=== PATIENT | female | born 1965 | race Caucasian/White ===

== ENCOUNTER 2016-07-26 09:34 | Day surgery (SDC) | payer BC, OTHER ==
--- NOTE | ~2016-07-26 | OP ---
Record Of Operation [facility] [address] [place]. [address] NAME: CREWAZRA : 67 STATUS : [facility] [place] [id number] AGE: 51 ADM/REG DATE : 07/26/16 MR#: [id number] REPORT SERV DATE: 07/26/16 DICTATED BY: DELFINO SKY DATE: 07/26/16 REPORT STATUS : Draft TRANSCRIBED BY: LENI DATE: 07/26/16 DATE OF PROCEDURE: PREPROCEDURE DIAGNOSIS: Screening. POSTPROCEDURE DIAGNOSIS: Aphthous ulcers in the cecum. PROCEDURE: Colonoscopy with cold biopsies of the cecum. DESCRIPTION OF PROCEDURE: The patient was taken to the endoscopy suite and positioned in the left lateral decubitus position. Informed consent was obtained, followed by IV sedation delivered by [employer]. The sacral nerve stimulator was turned off, and digital rectal exam was performed with decreased sphincter tone. The scope was navigated without difficulty to the ileocecal valve, where appendiceal orifice was identified. Prep was adequate. More than 90% of the mucosa was visualized. No polyps were noted. She did have aphthous ulcers in the cecum, but in no other location, and no other inflammation or diverticular disease. The scope was withdrawn over a 12-minute period of time. No attempt was made to retroflex since the patient is incontinent of stool and could not hold the gas. However, the scope was withdrawn slowly through the anal canal, where there appeared to be grade 2 internal hemorrhoids with some inflammation, which would be consistent with the patient's recent bleeding. Her followup is repeat colonoscopy in 10 years. It was my pleasure participating in the care of your patient. MYNOR/LENI Delfino Sky M.D. / [id number] CC: Balaji Beaulieu DO
[~2016-07-26 09:34] MED LIST: *DENIES; ACET500CAP PO; ASA5GR PO; BENADRYL 50 MG50 MG PO; CYMBALTA30 PO; DIL2TAB PO; DIOVAN HCT160 MG/25 PO; KLONO5 PO; LIPITOR20 PO; LYRICA50 PO; MAGOX4 PO; MIRALAXPKT PO; MOTRIN IB200 MG PO; MULTIVIT/MIN PO; MULTIVITAMI1 PO; PEPCID40 MG OR; PRILOSEC OTC20 MG PO; SAVELLA25 MG PO; SEROQUEL25 PO; VITAMIN D31000 UNIT PO; WELLXL300 PO; ZANAFLEX2 MG PO
[2016-12-26] MEDS ORDERED: PROMETRIUM200 MG PO (15:02)
[2016-12-26] MEDS ORDERED: VIVELLE SY0.0375 MG/ TOP (15:02)
[2016-12-26] MEDS ORDERED: DIL2TAB PO (15:03)
[2016-12-26] MEDS ORDERED: ZOFRAN4 PO (15:04)
== END 2016-07-26 23:59 | disposition home or self-care (01) ==
LOC: DMU 09:34
PROVIDERS: Surgery
PROC: 0DBH8ZX Excision of Cecum, Via Natural or Artificial Opening Endoscopic, Diagnostic (ICD-10-PCS; principal; 2016-07-26 11:00)
DX: Z12.11 Encounter for screening for malignant neoplasm of colon (principal); K64.1 Second degree hemorrhoids; K21.9 Gastro-esophageal reflux disease without esophagitis; F41.9 Anxiety disorder, unspecified; G62.9 Polyneuropathy, unspecified; M79.7 Fibromyalgia; F32.9 Major depressive disorder, single episode, unspecified; Z87.01 Personal history of pneumonia (recurrent); Z88.2 Allergy status to sulfonamides; Z88.5 Allergy status to narcotic agent; Z91.040 Latex allergy status; Z88.6 Allergy status to analgesic agent; Z88.8 Allergy status to other drugs, medicaments and biological substances; Z91.018 Allergy to other foods; Z90.710 Acquired absence of both cervix and uterus; Z98.890 Other specified postprocedural states
CPT/HCPCS: 88305; J2405

== ENCOUNTER 2016-12-25 14:54 | Emergency (ER) | payer BC, OTHER ==
[2016-12-25 15:43] LABS: BASOPHILS 0.2 %; BASOPHILS ABSOLUTE 0.03 10/3/uL (0.0-0.16); EOSINOPHILS 0.5 %; EOSINOPHILS ABSOLUTE 0.07 10/3/uL (0.0-0.53); HEMATOCRIT 40.3 % (36.0-48.0); HEMOGLOBIN 13.2 g/dL (12.0-16.0); IMMATURE GRANULOCYTES 0.3 %; IMMATURE GRANULOCYTES ABSOLUTE 0.04 10/3/uL (0.0-0.11); LYMPHOCYTES 9.5 %; LYMPHOCYTES ABSOLUTE 1.44 10/3/uL (0.67-4.30); MEAN CORPUS HGB CONC 32.8 g/dL (32.0-36.0); MEAN CORPUSCULAR HEMOGLOB 32.1 pg (26.0-34.0); MEAN CORPUSCULAR VOLUME 98.1 fL (80-100); MEAN PLATELET VOLUME 10.3 fL (9.2-13.0); MONOCYTES 4.5 %; MONOCYTES ABSOLUTE 0.68 10/3/uL (0.21-1.20); NEUTROPHILS ABSOLUTE 12.92 10/3/uL (2.02-8.40); PLATELET COUNT 292 10/3/uL (150-400); RED CELL COUNT 4.11 10/6/uL (4.0-5.6)
[2016-12-25 15:44] LABS: ER CBC TAT 0 Hrs 08 Mins; MANUAL DIFF NO %; WHITE BLOOD CELLS 15.2 10/3/uL (4.5-10.5)
[2016-12-25 15:50] LABS: ASCORBIC ACID (UR NOT ORDER) NEG (NEG); BILIRUBIN, URINE NEGATIVE (NEG); ER URINALYSIS TAT 0 Hrs 14 Mins; KETONE, URINE NEGATIVE (NEG); LEUKOCYTE ESTERASE(NOT OR NEG (NEG); NITRITE (URINE) NEG (NEG); WBC (NOT ORDERED) (RFLEX) 2 (0-5)
[2016-12-25 16:00] LABS: A/G RATIO 0.9 (0.7-1.9); ALKALINE PHOSPHATASE 86 U/L (45-117); CHLORIDE, SERUM 109 MMOL/L (96-112); GLOBULIN 4.2 G/DL (2.5-4.1); GLUCOSE, SERUM 99 MG/DL (60-99); SGOT(AST) 13 U/L (5-40); SGPT(ALT) 15 U/L (5-65); SODIUM, SERUM 141 MMOL/L (135-148); TOTAL BILIRUBIN 0.5 MG/DL (0-1.2); TOTAL PROTEIN 8.1 G/DL (6.0-8.5)
[2016-12-25 16:01] LABS: ALBUMIN 3.9 G/DL (3.5-5.0); BUN (BLOOD UREA NITROGEN) 16 MG/DL (6-23); CO2 (CARBON DIOXIDE) 23 MMOL/L (24-34); CREATININE 1.58 MG/DL (0.55-1.02); GFR AFRICAN AMERICAN 44 ML/MIN (>=60); GFR NON AFRICAN AMERICAN 38 ML/MIN (>=60)
[2016-12-26] MEDS ORDERED: PROMETRIUM200 MG PO (15:02)
[2016-12-26] MEDS ORDERED: VIVELLE SY0.0375 MG/ TOP (15:02)
[2016-12-26] MEDS ORDERED: DIL2TAB PO (15:03)
[2016-12-26] MEDS ORDERED: ZOFRAN4 PO (15:04)
== END 2016-12-25 18:40 | disposition home or self-care (01) ==
LOC: ER 14:54
PROVIDERS: Hospitalist
DX: N13.2 Hydronephrosis with renal and ureteral calculous obstruction (principal); D72.829 Elevated white blood cell count, unspecified; R79.89 Other specified abnormal findings of blood chemistry; I10 Essential (primary) hypertension; Z90.710 Acquired absence of both cervix and uterus; Z88.2 Allergy status to sulfonamides; Z88.5 Allergy status to narcotic agent; Z88.6 Allergy status to analgesic agent; Z91.018 Allergy to other foods; Z91.040 Latex allergy status; Z79.899 Other long term (current) drug therapy
CPT/HCPCS: 74000; 74176; 80053; 81001; 83690; 84703; 85025; 96374; 96375; 96376; 99284; J1170; J2405

== ENCOUNTER 2016-12-27 06:32 | Day surgery (SDC) | payer BC, OTHER ==
[~2016-12-27] VITALS: Ht 180.3 cm; Wt 68.0 kg
--- NOTE | ~2016-12-27 | OP ---
Record Of Operation [facility] [address] [place]. [address] NAME: AZRA MENDOZA : 67 STATUS : [facility]#: [id number] AGE: 51 ADM/REG DATE : 12/27/16 MR#: [id number] REPORT SERV DATE: 12/27/16 DICTATED BY: DAVE PAREDES JR. DATE: 12/27/16 REPORT STATUS : Draft TRANSCRIBED BY: LENI DATE: 12/27/16 DATE OF PROCEDURE: 12/27/2016 PREOPERATIVE DIAGNOSIS: Left ureteral stone. POSTOPERATIVE DIAGNOSIS: Left ureteral stone. PROCEDURE PERFORMED: Cystoscopy, left retrograde pyelogram, dilation of left ureteral orifice, left ureteroscopy, laser ablation of left ureteral stone, removal of fragments, double-J stent placement. COMPLICATIONS: None. CONSULTATIONS: None. ANESTHESIA: General with an endotracheal tube. SPECIMENS: Left ureteral stone fragments. DRAINS: 6 x 26 cm double-J stent with string. ESTIMATED BLOOD LOSS: None. INDICATION: Mrs. Mendoza is a 51-year-old female, who comes today for removal and treatment of a 7 mm upper ureteral stone. PROCEDURE IN DETAIL: After the patient was identified and proper informed consent was obtained, she was taken to the operating room. General anesthesia was performed without complication using an endotracheal tube. She was then prepped and draped in normal sterile fashion in the lithotomy position. Cystoscopic examination of the urethra and bladder were performed. The bladder and ureteral orifices were normal along with the urethra. Left retrograde pyelogram was performed using a 5-Bulgarian open-ended catheter. The stone was visualized in the midportion of the upper ureter with some residual hydroureteronephrosis above the stone. A guidewire was advanced through the open-ended catheter around the stone into the renal pelvis and a 12 x 14 Bulgarian ureteral access sheath was then placed to dilate the distal ureter and allow access with the flexible ureteroscope. Flexible ureteroscope was then advanced up to the level of the stone. The stone was visualized, manipulated back into the renal pelvis and mid pole calyx. I then fragmented the stone using a 200 micron laser fiber into multiple tiny pieces. I removed several of those pieces for analysis. These pieces were all less than a millimeter in size. I then reinspected the rest of the renal pelvis and calices and did not note any other stones. I removed the ureteroscope and the sheath from the ureteroscope sheath and then deployed a 6 x 26 cm double-J stent with a nice curl in both the bladder and the kidney. The string was left in place for removal on Sunday in the office. I will see her in approximately six weeks for stone analysis and further dietary counseling for stone prevention. Record Of Operation [address] [place]. [address] NAME: CREWAZRA : 67 STATUS : [facility] PAT#: [id number] AGE: 51 ADM/REG DATE : 12/27/16 MR#: [id number] REPORT SERV DATE: 12/27/16 DICTATED BY: DAVE PAREDES JR. DATE: 12/27/16 REPORT STATUS : Draft TRANSCRIBED BY: LENI DATE: 12/27/16 DYLON/LENI Dave Paredes Jr., M.D. / [id number] CC: Balaji Barbosa Jr., DO
[~2016-12-27 06:32] MED LIST changes: +PROMETRIUM200 MG PO; +VIVELLE SY0.0375 MG/ TOP; +ZOFRAN4 PO
[2016-12-30 01:15] LABS: STONE COMPOSITION TWO DNR (())
== END 2016-12-27 13:06 | disposition home or self-care (01) ==
LOC: SDC 06:32
PROVIDERS: Urology
PROC: 0T778DZ Dilation of Left Ureter with Intraluminal Device, Via Natural or Artificial Opening Endoscopic (ICD-10-PCS; 2016-12-27)
PROC: BT1FZZZ Fluoroscopy of Left Kidney, Ureter and Bladder (ICD-10-PCS; 2016-12-27)
PROC: 0TF78ZZ Fragmentation in Left Ureter, Via Natural or Artificial Opening Endoscopic (ICD-10-PCS; principal; 2016-12-27 07:45)
DX: N20.1 Calculus of ureter (principal); K21.9 Gastro-esophageal reflux disease without esophagitis; I10 Essential (primary) hypertension; G62.9 Polyneuropathy, unspecified; M79.7 Fibromyalgia; F41.9 Anxiety disorder, unspecified; F32.9 Major depressive disorder, single episode, unspecified; F90.9 Attention-deficit hyperactivity disorder, unspecified type; K44.9 Diaphragmatic hernia without obstruction or gangrene; Z90.710 Acquired absence of both cervix and uterus; Z88.8 Allergy status to other drugs, medicaments and biological substances; Z91.040 Latex allergy status; Z91.018 Allergy to other foods; Z88.2 Allergy status to sulfonamides; Z88.5 Allergy status to narcotic agent; Z98.890 Other specified postprocedural states
CPT/HCPCS: 74420; 82365; 93005; A9270-GY; C1758; C1769; C1894; C2617; J2250; J2405; J2710; J3010; Q9967